=== PATIENT | female | born 1965 | race African-American/Black ===

== ENCOUNTER 2017-07-01 16:53 | Inpatient (IN) | payer MEDICARE, MEDICAID ==
[~2017-07-01 16:53] MED LIST: ISOVUE-370 76%-LOCM 1 ML ONE
--- NOTE | 2017-07-01 17:12 | CT ---
CT OF HEAD NONCONTRAST 07/01/17 COMPARISON: 11/19/16 CLINICAL HISTORY: Stroke alert. FINDINGS: There is no evidence of acute intracranial hemorrhage, mass effect, or midline shift. Subtle low att enuation of the right internal capsule is nonspecific. IMPRESSION: 1. No acute intracranial hemorrhage or mass effect. 2. Subtle low attenuation of the cerebral parenchyma may be on the basis of microvascular ische george disease. recent ischemia not excluded. This may be further assessed with dedicated noncontrast b rain MRI. Telephone call of stroke results placed to the ER physician, Akash Lott, at 1704 hours, 07/01/17. Code CR
[2017-07-01 17:31] LABS: #Eosinphils 0.1 thou/uL (0.0-0.7); #Lymphocytes 2.6 thou/uL (1.20-3.40); #Monocytes 0.5 thou/uL (0.11-0.59); %Basophils 0.6 % (0.0-1.0); %Eosinophils 1.6 % (0.0-10.0); %Lymphocytes 35.8 % (21.0-51.0); %Monocytes 6.6 % (0.0-10.0); Hematocrit 46.3 % (36.0-47.0); Mean Platelet Volume 6.7 fL (7.4-10.4); Red Blood Cell (RBC) Count 4.84 mill/uL (4.20-5.40); White Blood Cell (WBC) Count 7.2 thou/uL (4.8-10.8)
[2017-07-01 17:36] LABS: PTT 26.5 SEC (22.9-36.1); Prothrombin Time 13.9 SEC (12.0-14.7)
[2017-07-01 17:43] LABS: ALT (SGPT) 8 U/L (8-55); AST (SGOT) 14 U/L (5-34); Alkaline Phosphatase 79 U/L (40-150); Anion Gap 15 mmol/L (10-20); BUN (Urea Nitrogen) 9 mg/dL (9.8-20.1); Bilirubin, Total 0.6 mg/dL (0.2-1.2); Calc. Creatinine Clearance 0 mL/min (70-130); Calcium 9.5 mg/dL (7.8-10.44); Carbon Dioxide 22 mmol/L (22-29); Chloride 98 mmol/L (98-107); Estimated GFR-MDRD Greater than 90; Globulin 4.4 g/dL (2.4-3.5); Protein, Total 8.3 g/dL (6.0-8.3)
[2017-07-01 17:48] LABS: Troponin I Less than 0.010 ng/mL (< 0.028)
[2017-07-01 18:04] LABS: Bilirubin Negative (Negative); Blood, Urine Negative (Negative); Glucose, Urine (Dipstick) Negative (Negative); Ketone, Urine Negative (Negative); Nitrite Negative (Negative); Protein, Urine (Dipstick) Negative (Neg-Trace)
--- NOTE | 2017-07-01 18:06 | CT ---
CT ANGIOGRAM OF THE HEAD CT ANGIOGRAM OF THE NECK CT PERFUSION 07/01/17 HISTORY: Left sided weakness and slurred speech. Patient last seen normal 1540 hours. Facial droop. COMPARISON: None. TECHNIQUE: CT angiogram of the head and neck are performed in the axial plane. Three dimensional reformatted im ages are submitted for interpretation. CT perfusion imaging is performed in the axial plain. FINDINGS: POSTCONTRAST HEAD CT: Cortical rene-white matter differentiation is preserved. No evidence of hydrocephalus. Bilateral ocular lens is appropriately located. Both globes are intact. Retrobulbar fat is preserved . Right maxillary sinus disease. Adequate aeration of the remaining sinuses and mastoid air cells. The aerodigestive tract is patent. No mucosal abnormality. Limited evaluation of the oral cavity due to dental amalgam artifact. Midline fatty raphae of the tongue is preserved. Symmetric attenuation of the parotid and submandibular glands. Appropriate attenuation of the sternocleidomastoid muscles. There are nonspecific, nonenlarged soft tissue neck lymph nodes. Hypodensity in the thyroid gland likely representing thyroid masses, possibly cystic lesions. Noneme rgent thyroid ultrasound. There is evidence of cervical fusion at C4, C5 and C6. No obvious perihardware lucency. There are va rying degrees of central canal stenosis and foraminal narrowing on the basis of degenerative change. The upper mediastinum and lung apices are unremarkable for chronic change. CT ANGIOGRAM: There is appropriate enhancement and luminal diameter of the aortic arch. There is a bovine arch with common origin of the right carotid and left carotid arteries. RIGHT CAROTID: The innominate artery, common carotid artery, carotid bifurcation and internal carotid artery have a ppropriate enhancement and luminal diameter. LEFT CAROTID: The left carotid artery origin, common carotid and carotid bifurcation have appropriate enhancement and luminal diameter. There is a small amount of atherosclerotic plaque without significant stenosis in the left carotid bifurcation. VERTEBRAL ARTERIES: Both vertebral artery origins are patent. Vertebral bodies are codominant and patent throughout thei r course in the neck. Bilateral subclavian arteries are patent and unremarkable. There is minimal atherosclerosis of the aortic arch. CT ANGIOGRAM OF THE HEAD: The distal cervical and intracranial internal carotid arteries have appropriate enhancement and venessa nal diameter. ANTERIOR CIRCULATION: There is symmetric enhancement of the A1 and M1 segments. Symmetric enhancement of the A2 segments a nd MCA branches. POSTERIOR CIRCULATION: Left and right PICA artery origins are unremarkable. Both vertebral arteries supply normal caliber b asilar artery. The left and right P1 segments have appropriate enhancement and luminal diameter. CT PERFUSION: There is no evidence of increased mean transit time. No evidence of decreased blood flow or blood vo lume. No evidence of penumbra or completed infarct. IMPRESSION: 1. No significant stenosis at the level of the [place]. 2. No evidence of significant stenosis of the carotid arteries based upon NASCET criteria. 3. Unremarkable CT perfusion study. 4. Results of the study discussed with Dr. Nix 07/01/17 at 5:29 p.m. Code CR POS: [facility]
[2017-07-01 18:15] LABS: Amphetamine Not Detected (NotDetected); Methadone Not Detected (NotDetected); Methamphetamine Not Detected (NotDetected)
--- NOTE | 2017-07-01 18:15 | RAD ---
EXAM: ONE VIEW CHEST 07/01/17 HISTORY: Left sided weakness and facial droop. COMPARISON: 02/24/17 FINDINGS: Normal cardiac silhouette. The pulmonary vessels and hilum are normal. Costophrenic angles are clear . Hyperinflation with chronic changes. No consolidation or mass. No pneumothorax or osseous abnormal ities. Calcified granuloma in the right upper lobe. IMPRESSION: No acute cardiopulmonary process. POS: [facility]
[2017-07-01] MEDS ORDERED: hydrALAZINE 20 MG/ML VIAL SLOW IVP PRN (19:03)
[2017-07-01] MEDS ORDERED: Bisacodyl 5 MG TAB PO PRN (19:03)
[2017-07-01] MEDS ORDERED: Acetaminophen 325 MG TAB PO PRN (19:03)
[2017-07-01] MEDS ORDERED: Ondansetron HCl/PF 4 MG/2 ML Vial IVP PRN (19:03)
[2017-07-01] MEDS ORDERED: Acetaminophen 650 MG Suppository PR PRN (19:03)
[2017-07-01] MEDS ORDERED: Dextrose 50% Abboject 50 ML SYRINGE SLOW IVP PRN (19:07)
[2017-07-01] MEDS ORDERED: Dextrose 5% in Water 1,000 ML IV PRN (19:07)
--- NOTE | 2017-07-01 19:53 | HP ---
PRIMARY CARE PHYSICIAN: Drew Campbell M.D. CHIEF COMPLAINT: Weakness. HISTORY OF PRESENT ILLNESS: Ms. Moreira is a pleasant 52-year-old lady who was seen at [facility] on 07/01/2017 following transfer to the emergency room by [facility]. The patient has slurred speech and is able to provide some history. Supplemental history was obtain ed from review of medical records as well as from discussion with the emergency room physician. Ms. Moreira reportedly woke up, feeling numbness over her left arm. She attributed to not sleeping p roperly. Since then, when she tried to go to the bathroom, she has felt weak in her left lower extr emity. She also reports having slurred speech and facial droop. Eventually, she called EMS and was air lifted to this emergency room. The patient reports that her symptoms are improving. REVIEW OF SYSTEMS: The following complete review of systems was negative, unless otherwise mentione d in the HPI or below: Constitutional: Weight loss or gain, sense of well-being, ability to conduct usual activities, exer cise tolerance. Skin/Breast: Rash, itching, changes in hair growth or loss, nail changes, breast lumps, tenderness, swelling, nipple discharge. Eyes: Vision, double vision, tearing, blind spots, pain. ENT/Mouth: Headaches (location, time of onset, duration, precipitating factors), vertigo, lighthead edness, injury. Vision, double vision, tearing, blind spots, pain, nose bleeding, colds, obstruction , discharge, dental difficulties, gingival bleeding, dentures, neck stiffness, pain, tenderness, mas ses in thyroid or other areas. Cardiovascular: Precordial pain, substernal distress, palpitations, syncope, dyspnea on exertion, o rthopnea, nocturnal paroxysmal dyspnea, edema, cyanosis, hypertension, heart murmurs, varicosities, phlebitis, claudication. Respiratory: Pain, shortness of breath, wheezing, stridor, cough, hemoptysis, fever or night sweats . Gastrointestinal: Poor appetite, dysphagia, indigestion, abdominal pain, heartburn, eructation, [place], vomiting, hematemesis, jaundice, constipation, or diarrhea, abnormal stools (roxane-colored, carolyn y, bloody, greasy, foul smelling), flatulence, hemorrhoids, recent changes in bowel habits. Genitourinary: Urgency, frequency, dysuria, nocturia, hematuria, polyuria, oliguria, unusual (or ch beatriz in) color of urine, stones, hesitancy, change in size of stream, dribbling, acute retention or incontinence, libido, potency. Musculoskeletal: Pain, swelling, redness or heat of muscles or joints, limitation, of motion, muscu lar weakness, atrophy, cramps. Neurologic/Psychiatric: Convulsions, paralyses, tremor, incoordination, paresthesias, difficulties with memory of speech, sensory or motor disturbances, or muscular coordination (ataxia, tremor), emo tional problems, anxiety, depression, previous psychiatric care, unusual perceptions, hallucinations . Allergy/Immunologic: Skin rash, anemia, bleeding tendency, polydipsia, polyuria, intolerance to hea t or cold. PAST MEDICAL HISTORY: Significant for diabetes mellitus type 2, gastroesophageal reflux disease, hy pertension, asthma, chronic back pain, arthritis, and lupus. PAST SURGICAL HISTORY: Significant for left knee surgery, bilateral hand surgery, neck surgery, hys terectomy, and x2. PSYCHIATRIC HISTORY: Significant for anxiety. SOCIAL HISTORY: The patient reports smoking 5 to 10 cigarettes a day. She reports occasional alcoh ol use. She reports occasional marijuana use. She reports occasional cocaine use. Her last cocain e use was last night. FAMILY HISTORY: Significant for stroke in her brother. ALLERGIES: ASPIRIN, LACTOSE, MEDROL, MORPHINE, SULFA, and TRAMADOL. CURRENT MEDICATIONS: Include escitalopram 10 mg daily, metformin 500 mg 2 times a day, glipizide 10 mg daily. PHYSICAL EXAMINATION: GENERAL: On examination, Ms. Moreira is awake and alert, not in acute distress. VITAL SIGNS: Blood pressure is 178/94, pulse is 77. She is breathing at rate of 20 and saturating 100% on room air. She is afebrile. EYES: No scleral icterus, no conjunctival pallor. ENT: Dry mucosal membranes, no oropharyngeal erythema or exudates. NECK: Supple, nontender, normal range of movement, trachea is midline. RESPIRATORY: Accessory muscles of breathing are not active. Chest wall movements are symmetric lindsey aterally. LUNGS: Clear to auscultation without wheeze, rhonchi or crepitations. CARDIOVASCULAR: S1 and S2 are heard, regular. LUNGS: Peripheral pulses palpable. No carotid bruit, no pericardial rub. ABDOMEN: Soft, nontender, bowel sounds heard, no hepatomegaly, no splenomegaly. SKIN: The patient has alopecia and plaque over her scalp. NEUROLOGIC: The patient has slurred speech. Otherwise, cranial nerves II-XII are intact. Power is 4+/5 in left upper and lower extremities, 5/5 in right upper and lower extremities. Deep tendon re flexes are 2+. Plantar reflexes downgoing bilaterally. MUSCULOSKELETAL: Power in the four extremities as described above. LYMPHATIC: No cervical lymphadenopathy. PSYCHIATRIC: Normal mood, normal affect, patient is oriented to person, place, and time. LABORATORY DATA: Ms. Moreira' labs and investigations were reviewed. I reviewed her electrocardiogr am, which shows normal sinus rhythm, no ST changes to suggest an acute coronary syndrome. I also re viewed chest x-ray, which does not show any pulmonary infiltrates. She had noncontrast brain CT, wh ich did not reveal any acute intracranial hemorrhage or mass effect. She had a subtle low attenuati on of the cerebellar parenchyma, which could be on the basis of microvascular ischemic disease. The radiologist could not exclude recent ischemia. She also had CT angiogram of the head and neck, whi ch did not reveal any significant stenosis at the level of [place] or significant stenosis of the carotid arteries. LABORATORY INVESTIGATIONS: Show unremarkable CBC, INR 1.1, hyponatremia with sodium 131, normal pot assium, normal creatinine, unremarkable liver profile, normal TSH, normal troponin I, urinalysis khushboo t is negative for nitrite and leukocyte esterase and urine toxicology screen positive for cocaine an d cannabinoids. ASSESSMENT AND PLAN: Ms. Moreira is a pleasant 52-year-old lady who was seen at [facility] on 07/01/2017. Her problem list includes: 1. Ischemic cerebrovascular accident: Her presentation is consistent with an ischemic cerebrovascu lar accident. She will be admitted to the stroke floor for MRI brain and 2D echocardiogram and tele metry monitoring. We will also consult Neurology Service. She has already received aspirin without any side effects, we will continue aspirin. 2. Diabetes mellitus: Continue home medications, start insulin sliding scale and monitor Accu-Chek s. 3. Hypertension: Monitor vital signs, titrate antihypertensives as needed. 4. Gastroesophageal reflux disease: Appears stable. 5. Lupus: Appears stable. 6. Tobacco use: The patient has been counseled regarding tobacco cessation. We will start patient on nicotine replacement therapy. 7. Recreational drug abuse: The patient has been counseled about cessation of recreational drug us e. Many thanks for allowing me to participate in your patient's care. Please feel free to contact me w ith any questions or concerns. LEVEL OF RISK: High. LEVEL OF COMPLEXITY: High.
[2017-07-01 21:15] LABS: Troponin I Less than 0.010 ng/mL (< 0.028)
[2017-07-01] MEDS: Atorvastatin Calcium 10 MG TAB PO SCH (23:11)
[2017-07-01] MEDS: Nicotine 14 MG PATCH TD SCH (23:11)
[2017-07-01 23:22] VITALS: BMI 25.6
[2017-07-02 00:09] LABS: Troponin I Less than 0.010 ng/mL (< 0.028)
[2017-07-02 04:25] LABS: #Basophils 0.1 thou/uL (0.0-0.2); #Eosinphils 0.1 thou/uL (0.0-0.7); #Lymphocytes 2.3 thou/uL (1.20-3.40); #Monocytes 0.4 thou/uL (0.11-0.59); #Neutrophils 3.8 thou/uL (1.40-6.50); %Basophils 0.9 % (0.0-1.0); %Monocytes 6.1 % (0.0-10.0); Hematocrit 45.8 % (36.0-47.0); Mean Platelet Volume 6.7 fL (7.4-10.4); Red Blood Cell (RBC) Count 4.83 mill/uL (4.20-5.40); White Blood Cell (WBC) Count 6.7 thou/uL (4.8-10.8)
[2017-07-02 04:54] LABS: Anion Gap 15 mmol/L (10-20); BUN (Urea Nitrogen) 11 mg/dL (9.8-20.1); Calc. Creatinine Clearance 90 mL/min (70-130); Calcium 9.7 mg/dL (7.8-10.44); Carbon Dioxide 25 mmol/L (22-29); Chloride 101 mmol/L (98-107); Cholesterol 132 mg/dl (< 200 Desired); Estimated GFR-MDRD Greater than 90; LDL Cholesterol, Calculated 53 mg/dL
[2017-07-02] MEDS: HumaLOG 300 UNITS/3 ML VIAL SC PRN ×2 (06:45→11:10)
[2017-07-02] MEDS: glipiZIDE 5 MG TAB PO SCH (06:45)
[2017-07-02] MEDS: Escitalopram Oxalate 10 mg Tablet PO SCH (09:00)
[2017-07-02] MEDS: Enoxaparin Sodium 40 MG/0.4 ML SYRINGE SC SCH (09:00)
[2017-07-02] MEDS: Aspirin 325 mg Enteric Coated Tablet PO SCH (09:00)
--- NOTE | 2017-07-02 10:47 | PDOC.PN ---
- Subjective Encounter Start Date: 07/02/17 Encounter Start Time: 07:00 Pt seen for followup re: weakness. Denies chest pain, shortness of breath, fevers or chills. Speech less slurred today. - Objective MAR Reviewed: Yes Vital Signs & Weight: Vital Signs (12 hours) Temp Pulse Resp BP Pulse Ox 07/02/17 07:40 97.7 F 74 18 07/02/17 07:08 97.7 F 74 18 134/75 98 07/02/17 04:10 97.5 F L 70 16 121/72 94 L 07/02/17 00:20 98.4 F 78 18 151/86 H 100 I&O: 07/01/17 07/02/17 07/03/17 06:59 06:59 06:59 Intake Total 240 Balance 240 Result Diagrams: 07/02/17 04:13 07/02/17 04:13 Additional Labs: Accuchecks 07/02/17 07/02/17 05:25 00:10 POC Glucose 174 H 233 H EKG Reviewed by me: Yes (Tele: NSR) Phys Exam - Physical Examination Constitutional: NAD HEENT: PERRLA, moist MMs, sclera anicteric, oral pharynx no lesions Neck: no nodes, no JVD, supple, full ROM Respiratory: no wheezing, no rales, no rhonchi, clear to auscultation bilateral Cardiovascular: RRR, no rub Gastrointestinal: soft, non-tender, no distention, positive bowel sounds Musculoskeletal: pulses present Neurological: moves all 4 limbs Power 4+/5 LLE and LUE, 5/5 RLE and RUE Lymphatic: no nodes Psychiatric: normal affect, A&O x 3 Skin: no rash, normal turgor, cap refill <2 seconds Dx/Plan (1) Weakness Code(s): R53.1 - WEAKNESS Status: Acute (2) TIA (transient ischemic attack) Status: Suspected (3) DM2 (diabetes mellitus, type 2) Status: Chronic (4) GERD (gastroesophageal reflux disease) Code(s): K21.9 - GASTRO-ESOPHAGEAL REFLUX DISEASE WITHOUT ESOPHAGITIS Status: Chronic (5) HTN (hypertension) Code(s): I10 - ESSENTIAL (PRIMARY) HYPERTENSION Status: Chronic (6) Asthma Code(s): J45.909 - UNSPECIFIED ASTHMA, UNCOMPLICATED Status: Chronic (7) Chronic back pain Code(s): M54.9 - DORSALGIA, UNSPECIFIED; G89.29 - OTHER CHRONIC PAIN Status: Chronic (8) Lupus Code(s): L93.0 - DISCOID LUPUS ERYTHEMATOSUS Status: Chronic - Plan PT/OT, out of bed/ambulate, DVT proph w/lovenox * . Continue aspirin, statin. Await MRI brain, 2D echo, neuro consult. Monitor vital signs, titrate antihypertensives as needed. Continue accuchecks, insulin sliding scale. Review of Systems - Review of Systems Constitutional: negative: Fever, Chills, Sweats, Weakness, Malaise Respiratory: negative: Cough, Dry, Shortness of Breath, Hemoptysis, SOB with Excertion, Pleuritic Pain, Sputum, Wheezing Cardiovascular: negative: Chest Pain, Palpitations, Orthopnea, Paroxysmal Noc. Dyspnea, Edema, Light Headedness Gastrointestinal: negative: Nausea, Vomiting, Abdominal Pain, Diarrhea, Constipation, Melena, Hematochezia Genitourinary: negative: Dysuria, Frequency, Incontinence, Hematuria, Retention Neurological: Weakness, Change in Speech. negative: Numbness, Incoordination, Confusion, Seizures - Medications/Allergies Allergies/Adverse Reactions: Allergies Allergy/AdvReac Type Severity Reaction Status Date / Time aspirin Allergy Verified 07/01/17 19:02 methylprednisolone Allergy Verified 07/01/17 19:02 [From Medrol] morphine Allergy Verified 07/01/17 19:02 Sulfa (Sulfonamide Allergy Verified 07/01/17 19:02 Antibiotics) tramadol Allergy Verified 07/01/17 19:02 Medications: Current Medications Acetaminophen (Tylenol) 650 mg PO Q4H PRN PRN Reason: Headache/Fever or Pain Acetaminophen (Tylenol) 650 mg [place] Q4H PRN PRN Reason: Headache/Fever or Pain Aspirin (Ecotrin) 325 mg PO DAILY [facility] Last Admin: 07/02/17 09:00 Dose: 325 mg Atorvastatin Calcium (Lipitor) 10 mg PO HS [facility] Last Admin: 07/01/17 23:11 Dose: 10 mg Bisacodyl (Dulcolax) 10 mg PO DAILYPRN PRN PRN Reason: Constipation Dextrose/Water (Dextrose 50%) 25 gm SLOW IVP PRN PRN PRN Reason: Hypoglycemia Enoxaparin Sodium (Lovenox) 40 mg SC 0900 [facility] Last Admin: 07/02/17 09:00 Dose: 40 mg Escitalopram Oxalate (Lexapro) 10 mg PO DAILY [facility] Last Admin: 07/02/17 09:00 Dose: 10 mg Glipizide (Glucotrol) 5 mg PO DAILY[facility] Last Admin: 07/02/17 06:45 Dose: 5 mg Glucagon (Glucagon) 1 mg IM PRN PRN PRN Reason: Hypoglycemia Hydralazine HCl (Apresoline) 10 mg SLOW IVP Q4H PRN PRN Reason: BP > 220/110 Dextrose/Water (D5w) 1,000 mls @ 0 mls/hr IV .Q0M PRN; As Directed PRN Reason: Hypoglycemia Insulin Human Lispro (Humalog) 0 units SC .MILD SLIDING SCALE PRN PRN Reason: Mild Correctional Scale Last Admin: 07/02/17 06:45 Dose: 2 unit Nicotine (Nicoderm Patch) 14 mg TD Q24HR [facility] Last Admin: 07/01/17 23:11 Dose: 14 mg Ondansetron HCl (Zofran) 4 mg IVP Q6H PRN PRN Reason: Nausea/Vomiting
--- NOTE | 2017-07-02 11:52 | MRI ---
MRI OF THE BRAIN WITHOUT CONTRAST: COMPARISON: CTA head 07/01/17. HISTORY: Stroke with facial drooping and left-sided weakness. TECHNIQUE: Multiplanar, multisequence MRI images were obtained of the brain without contrast. FINDINGS: There is a 1.3 cm area of restricted diffusion and high FLAIR signal in the right basal ganglia whic h represents an acute infarction. No other signal abnormality is seen within the brain. There is no evidence of hydrocephalus, intracranial hemorrhage, or extraaxial fluid collection. The expected flow voids are present. The corpus callosum, pituitary, and craniocervical junction are unremarkable. The calvarium and ove rlying soft tissues are unremarkable. Mucosal thickening is seen in the right maxillary sinus. IMPRESSION: Acute right basal ganglia infarction as above. POS: [facility]
--- NOTE | 2017-07-02 18:30 | CON ---
DATE OF CONSULTATION: 07/02/2017 CONSULTING PHYSICIAN: Hospitalist. IMPRESSION: 1. Right basal ganglia stroke. 2. Cocaine abuse. 3. Hypertension. 4. Diabetes. PLAN: 1. Aspirin 325 mg per day. 2. Lipitor 20 mg per day. 3. Patient was advised to discontinue cocaine abuse. HISTORY OF PRESENT ILLNESS: Ms. Moreira is a 52-year-old black female with a history of hypertension and diabetes, who went to a green party and smoked cocaine and a joint. She started feeling strange and went home. When she awoke, she had left-sided weakness. She came to the hospital for evaluation. Her MRI of the brain revealed right basal ganglia infarct. Her CTA did not reveal any carotid or in tracranial stenosis. She has been minimally hypertensive since admission. Her blood sugars have be en running in the 200-300 range. She does not report any significant change since admission. There is no past history of TIA or stroke-like symptoms. PAST MEDICAL HISTORY: Hypertension and diabetes. ALLERGIES: ASPIRIN, METHYLPREDNISOLONE, MORPHINE as well as OTHERS LISTED. SOCIAL HISTORY: Positive for tobacco, marijuana and cocaine. FAMILY HISTORY: Noncontributory. REVIEW OF SYSTEMS: Otherwise, negative. PHYSICAL EXAMINATION: VITAL SIGNS: Blood pressure 157/85, pulse 77, respirations 18, temperature 98. HEENT: Pupils equal and reactive. Conjunctivae clear. Oropharynx clear. NECK: Supple. No lymphadenopathy noted. EXTREMITIES: No cyanosis, clubbing or edema. NEUROLOGIC: She is alert and cooperative. Her speech was fluent and clear. There was some minimal facial asymmetry on the left with a slight droop. Sensation was intact. Motor exam showed 4/5 str ength on the left. Zygtaa-rr-hmto movements were clumsy on the left. Sensation was intact in the e xtremities as well. She reportedly can walk independently with a limp on the left. No abnormal mov ements were seen. LABORATORY STUDIES: Reviewed. Imaging studies were reviewed as well. SUMMARY: This is a 52-year-old woman with history of hypertension and diabetes, who presented with a small vessel stroke after cocaine use. Would start her on antiplatelet therapy, I guess with Plav ix, now that as she is ASPIRIN allergic and a low dose of statin given that her cholesterol measures are actually relatively good.
[2017-07-02] MEDS: Atorvastatin Calcium 10 MG TAB PO SCH (20:08)
[2017-07-02] MEDS: Nicotine 14 MG PATCH TD SCH (20:08)
[2017-07-03] MEDS: glipiZIDE 5 MG TAB PO SCH ×3 (06:34→17:33)
[2017-07-03] MEDS: HumaLOG 300 UNITS/3 ML VIAL SC PRN ×3 (06:34→17:33)
[2017-07-03] MEDS: Escitalopram Oxalate 10 mg Tablet PO SCH (09:44)
[2017-07-03] MEDS: Aspirin 325 mg Enteric Coated Tablet PO SCH (09:44)
[2017-07-03] MEDS: Enoxaparin Sodium 40 MG/0.4 ML SYRINGE SC SCH (09:44)
--- NOTE | 2017-07-03 10:21 | PDOC.PN ---
- Subjective Encounter Start Date: 07/03/17 Encounter Start Time: 08:00 Subjective: feels better, is able to move left extremities - Objective MAR Reviewed: Yes Vital Signs & Weight: Vital Signs (12 hours) Temp Pulse Resp BP Pulse Ox 07/03/17 07:20 97.9 F 74 16 07/03/17 07:15 98.7 F 71 16 175/96 H 96 07/03/17 04:06 97.9 F 74 16 142/89 H 97 07/02/17 23:39 97.9 F 69 18 155/90 H 99 I&O: 07/02/17 07/03/17 07/04/17 06:59 06:59 06:59 Intake Total 700 Balance 700 Result Diagrams: 07/02/17 04:13 07/02/17 04:13 Additional Labs: Accuchecks 07/03/17 07/02/17 07/02/17 06:34 21:19 16:44 POC Glucose 159 H 156 H 104 Phys Exam - Physical Examination HEENT: PERRLA, moist MMs Neck: no JVD, supple Respiratory: no wheezing, no rales Cardiovascular: RRR, no significant murmur Gastrointestinal: soft, non-tender, positive bowel sounds Musculoskeletal: no edema, pulses present left side strength is 4/5, right is normal Psychiatric: A&O x 3 Dx/Plan (1) Acute CVA (cerebrovascular accident) Code(s): I63.9 - CEREBRAL INFARCTION, UNSPECIFIED Status: Acute Comment: right basal ganglia infarct with left hemiparesis (2) Cocaine abuse Code(s): F14.10 - COCAINE ABUSE, UNCOMPLICATED Status: Acute (3) Asthma Code(s): J45.909 - UNSPECIFIED ASTHMA, UNCOMPLICATED Status: Chronic Qualifiers: Asthma severity: mild Asthma persistence: intermittent Asthma complication type: uncomplicated Qualified Code(s): J45.20 - Mild intermittent asthma, uncomplicated (4) DM2 (diabetes mellitus, type 2) Status: Chronic Qualifiers: Diabetes mellitus complication status: with hyperglycemia Diabetes mellitus shelter insulin use: with shelter use Qualified Code(s): E11.65 - Type 2 diabetes mellitus with hyperglycemia; Z79.4 - FPC (current) use of insulin; Z79.4 - FPC (current) use of insulin; Z79.4 - FPC ( current) use of insulin; Z79.4 - FPC (current) use of insulin (5) GERD (gastroesophageal reflux disease) Code(s): K21.9 - GASTRO-ESOPHAGEAL REFLUX DISEASE WITHOUT ESOPHAGITIS Status: Chronic Qualifiers: Esophagitis presence: esophagitis presence not specified Qualified Code(s) : K21.9 - Gastro-esophageal reflux disease without esophagitis (6) HTN (hypertension) Code(s): I10 - ESSENTIAL (PRIMARY) HYPERTENSION Status: Chronic Qualifiers: Hypertension type: essential hypertension Qualified Code(s): I10 - Essential (primary) hypertension (7) Lupus Code(s): L93.0 - DISCOID LUPUS ERYTHEMATOSUS Status: Chronic Qualifiers: Lupus erythematosus form: unspecified Qualified Code(s): L93.0 - Discoid lupus erythematosus - Plan is on asp and lipitor -: PT/OT/speech eval -: rehab eval pending -: has amb with PT -: increase glipizide to bid and levemir small dose bid * . Review of Systems - Medications/Allergies Allergies/Adverse Reactions: Allergies Allergy/AdvReac Type Severity Reaction Status Date / Time aspirin Allergy Verified 07/01/17 19:02 methylprednisolone Allergy Verified 07/01/17 19:02 [From Medrol] morphine Allergy Verified 07/01/17 19:02 Sulfa (Sulfonamide Allergy Verified 07/01/17 19:02 Antibiotics) tramadol Allergy Verified 07/01/17 19:02 Medications: Current Medications Acetaminophen (Tylenol) 650 mg PO Q4H PRN PRN Reason: Headache/Fever or Pain Acetaminophen (Tylenol) [address] Q4H PRN PRN Reason: Headache/Fever or Pain Aspirin (Ecotrin) 325 mg PO DAILY [facility] Last Admin: 07/03/17 09:44 Dose: 325 mg Atorvastatin Calcium (Lipitor) 10 mg PO HS [facility] Last Admin: 07/02/17 20:08 Dose: 10 mg Bisacodyl (Dulcolax) 10 mg PO DAILYPRN PRN PRN Reason: Constipation Dextrose/Water (Dextrose 50%) 25 gm SLOW IVP PRN PRN PRN Reason: Hypoglycemia Enoxaparin Sodium (Lovenox) 40 mg SC 0900 [facility] Last Admin: 07/03/17 09:44 Dose: 40 mg Escitalopram Oxalate (Lexapro) 10 mg PO DAILY [facility] Last Admin: 07/03/17 09:44 Dose: 10 mg Glipizide (Glucotrol) 5 mg PO BID-[facility] Last Admin: 07/03/17 08:32 Dose: Not Given Glucagon (Glucagon) 1 mg IM PRN PRN PRN Reason: Hypoglycemia Hydralazine HCl (Apresoline) 10 mg SLOW IVP Q4H PRN PRN Reason: BP > 220/110 Dextrose/Water (D5w) 1,000 mls @ 0 mls/hr IV .Q0M PRN; As Directed PRN Reason: Hypoglycemia Insulin Detemir 5 units/ (Miscellaneous Medication) 0.05 mls @ 0 mls/hr SC BID [facility] Insulin Human Lispro (Humalog) 0 units SC .MILD SLIDING SCALE PRN PRN Reason: Mild Correctional Scale Last Admin: 07/03/17 06:34 Dose: 2 unit Nicotine (Nicoderm Patch) 14 mg TD Q24HR [facility] Last Admin: 07/02/17 20:08 Dose: 14 mg Ondansetron HCl (Zofran) 4 mg IVP Q6H PRN PRN Reason: Nausea/Vomiting
[2017-07-03] MEDS: Insulin Detemir 100 UNITS/ML 5 UNITS in Pre-Filled Syringe 1 EACH SC SCH ×2 (12:04→20:45)
[2017-07-03] MEDS: Nicotine 14 MG PATCH TD SCH (17:33)
[2017-07-03] MEDS: Atorvastatin Calcium 10 MG TAB PO SCH (20:45)
[2017-07-04] MEDS: glipiZIDE 5 MG TAB PO SCH (06:30)
[2017-07-04] MEDS: Aspirin 325 mg Enteric Coated Tablet PO SCH (09:27)
[2017-07-04] MEDS: Insulin Detemir 100 UNITS/ML 5 UNITS in Pre-Filled Syringe 1 EACH SC SCH (09:27)
[2017-07-04] MEDS: Escitalopram Oxalate 10 mg Tablet PO SCH (09:27)
[2017-07-04] MEDS: Enoxaparin Sodium 40 MG/0.4 ML SYRINGE SC SCH (09:28)
--- NOTE | 2017-07-04 10:26 | CT ---
CT ANGIOGRAM OF THE HEAD CT ANGIOGRAM OF THE NECK CT PERFUSION 07/01/17 HISTORY: Left sided weakness and slurred speech. Patient last seen normal 1540 hours. Facial droop. COMPARISON: None. TECHNIQUE: CT angiogram of the head and neck are performed in the axial plane. Three dimensional reformatted im ages are submitted for interpretation. CT perfusion imaging is performed in the axial plain. FINDINGS: POSTCONTRAST HEAD CT: Cortical rene-white matter differentiation is preserved. No evidence of hydrocephalus. Bilateral ocular lens is appropriately located. Both globes are intact. Retrobulbar fat is preserved . Right maxillary sinus disease. Adequate aeration of the remaining sinuses and mastoid air cells. The aerodigestive tract is patent. No mucosal abnormality. Limited evaluation of the oral cavity due to dental amalgam artifact. Midline fatty raphae of the tongue is preserved. Symmetric attenuation of the parotid and submandibular glands. Appropriate attenuation of the sternocleidomastoid muscles. There are nonspecific, nonenlarged soft tissue neck lymph nodes. Hypodensity in the thyroid gland likely representing thyroid masses, possibly cystic lesions. Noneme rgent thyroid ultrasound. There is evidence of cervical fusion at C4, C5 and C6. No obvious perihardware lucency. There are va rying degrees of central canal stenosis and foraminal narrowing on the basis of degenerative change. The upper mediastinum and lung apices are unremarkable for chronic change. CT ANGIOGRAM: There is appropriate enhancement and luminal diameter of the aortic arch. There is a bovine arch with common origin of the right carotid and left carotid arteries. RIGHT CAROTID: The innominate artery, common carotid artery, carotid bifurcation and internal carotid artery have a ppropriate enhancement and luminal diameter. LEFT CAROTID: The left carotid artery origin, common carotid and carotid bifurcation have appropriate enhancement and luminal diameter. There is a small amount of atherosclerotic plaque without significant stenosis in the left carotid bifurcation. VERTEBRAL ARTERIES: Both vertebral artery origins are patent. Vertebral bodies are codominant and patent throughout thei r course in the neck. Bilateral subclavian arteries are patent and unremarkable. There is minimal atherosclerosis of the aortic arch. CT ANGIOGRAM OF THE HEAD: The distal cervical and intracranial internal carotid arteries have appropriate enhancement and venessa nal diameter. ANTERIOR CIRCULATION: There is symmetric enhancement of the A1 and M1 segments. Symmetric enhancement of the A2 segments a nd MCA branches. POSTERIOR CIRCULATION: Left and right PICA artery origins are unremarkable. Both vertebral arteries supply normal caliber b asilar artery. The left and right P1 segments have appropriate enhancement and luminal diameter. CT PERFUSION: There is no evidence of increased mean transit time. No evidence of decreased blood flow or blood vo lume. No evidence of penumbra or completed infarct. IMPRESSION: 1.No significant stenosis at the level of the [place] of [place]. 2. No evidence of significant stenosis of the carotid arteries based upon NASCET criteria. 3.Unremarkable CT perfusion study. 4. Results of the study discussed with Dr. Nix 07/01/17 at 5:29 p.m. Code CR
--- NOTE | 2017-07-04 10:40 | PDOC.PN ---
- Subjective Encounter Start Date: 07/04/17 Encounter Start Time: 10:38 Patient seen and examined. No new complaints. No overnight events - Objective MAR Reviewed: Yes Vital Signs & Weight: Vital Signs (12 hours) Temp Pulse Resp BP Pulse Ox 07/04/17 08:00 98.4 F 71 20 161/86 H 98 07/04/17 07:40 98.4 F 70 18 07/04/17 05:04 97 07/04/17 03:14 98.4 F 70 18 161/83 H 97 07/03/17 23:14 97.9 F 68 16 161/79 H 98 Weight Weight 152 lb 4.8 oz I&O: 07/03/17 07/04/17 07/05/17 06:59 06:59 06:59 Intake Total 700 1180 Balance 700 1180 Result Diagrams: 07/02/17 04:13 07/02/17 04:13 Additional Labs: Accuchecks 07/03/17 07/03/17 07/03/17 20:18 16:57 10:36 POC Glucose 131 H 273 H 162 H EKG Reviewed by me: Yes (Tele SR) Phys Exam - Physical Examination Constitutional: NAD Respiratory: no wheezing, no rhonchi Cardiovascular: RRR, no rub Gastrointestinal: soft, non-tender, positive bowel sounds Musculoskeletal: no edema Neurological: non-focal, moves all 4 limbs Dx/Plan (1) Acute CVA (cerebrovascular accident) Code(s): I63.9 - CEREBRAL INFARCTION, UNSPECIFIED Status: Acute Comment: right basal ganglia infarct with left hemiparesis (2) Polysubstance abuse Code(s): F19.10 - OTHER PSYCHOACTIVE SUBSTANCE ABUSE, UNCOMPLICATED Status: Acute (3) DM2 (diabetes mellitus, type 2) Status: Chronic Qualifiers: Diabetes mellitus complication status: with hyperglycemia (4) GERD (gastroesophageal reflux disease) Code(s): K21.9 - GASTRO-ESOPHAGEAL REFLUX DISEASE WITHOUT ESOPHAGITIS Status: Chronic (5) HTN (hypertension) Code(s): I10 - ESSENTIAL (PRIMARY) HYPERTENSION Status: Chronic - Plan cont current plan of care, DVT proph w/lovenox, DVT proph w/SCDs * Await Rehab eval * Echo report pending * Cont to monitor * Cont ASA Review of Systems - Review of Systems Respiratory: negative: Cough, Dry, Shortness of Breath, Hemoptysis, SOB with Excertion, Pleuritic Pain, Sputum, Wheezing Cardiovascular: negative: Chest Pain, Palpitations, Orthopnea, Paroxysmal Noc. Dyspnea, Edema, Light Headedness, Other Gastrointestinal: negative: Nausea, Vomiting, Abdominal Pain, Diarrhea, Constipation, Melena, Hematochezia, Other - Medications/Allergies Allergies/Adverse Reactions: Allergies Allergy/AdvReac Type Severity Reaction Status Date / Time aspirin Allergy Verified 07/01/17 19:02 methylprednisolone Allergy Verified 07/01/17 19:02 [From Medrol] morphine Allergy Verified 07/01/17 19:02 Sulfa (Sulfonamide Allergy Verified 07/01/17 19:02 Antibiotics) tramadol Allergy Verified 07/01/17 19:02 Medications: Current Medications Acetaminophen (Tylenol) 650 mg PO Q4H PRN PRN Reason: Headache/Fever or Pain Acetaminophen (Tylenol) 650 mg OR Q4H PRN PRN Reason: Headache/Fever or Pain Aspirin (Ecotrin) 325 mg PO DAILY [facility] Last Admin: 07/04/17 09:27 Dose: 325 mg Atorvastatin Calcium (Lipitor) 10 mg PO HS [facility] Last Admin: 07/03/17 20:45 Dose: 10 mg Bisacodyl (Dulcolax) 10 mg PO DAILYPRN PRN PRN Reason: Constipation Dextrose/Water (Dextrose 50%) 25 gm SLOW IVP PRN PRN PRN Reason: Hypoglycemia Enoxaparin Sodium (Lovenox) 40 mg SC 0900 [facility] Last Admin: 07/04/17 09:28 Dose: 40 mg Escitalopram Oxalate (Lexapro) 10 mg PO DAILY [facility] Last Admin: 07/04/17 09:27 Dose: 10 mg Glipizide (Glucotrol) 5 mg PO BID-[facility] Last Admin: 07/04/17 06:30 Dose: 5 mg Glucagon (Glucagon) 1 mg IM PRN PRN PRN Reason: Hypoglycemia Hydralazine HCl (Apresoline) 10 mg SLOW IVP Q4H PRN PRN Reason: BP > 220/110 Dextrose/Water (D5w) 1,000 mls @ 0 mls/hr IV .Q0M PRN; As Directed PRN Reason: Hypoglycemia Insulin Detemir 5 units/ (Miscellaneous Medication) 0.05 mls @ 0 mls/hr SC BID [facility] Last Admin: 07/04/17 09:27 Dose: 0.05 mls Insulin Human Lispro (Humalog) 0 units SC .MILD SLIDING SCALE PRN PRN Reason: Mild Correctional Scale Last Admin: 07/03/17 17:33 Dose: 6 unit Nicotine (Nicoderm Patch) 14 mg TD Q24HR [facility] Last Admin: 07/03/17 17:33 Dose: 14 mg Ondansetron HCl (Zofran) 4 mg IVP Q6H PRN PRN Reason: Nausea/Vomiting
[2017-07-04 12:03] VITALS: TEMP 98.5
[2017-07-04 15:57] VITALS: BP 170/88
--- NOTE | 2017-07-04 18:28 | DIS ---
DATE OF DISCHARGE: 07/04/2017 DISCHARGE DISPOSITION: To inpatient rehab. The patient was seen and examined on the day of discharge. Please refer to my progress note for det ails. DISCHARGE MEDICATIONS: Tylenol as needed, amlodipine 5 mg b.i.d., aspirin 325 mg daily, Lipitor 10 mg at bedtime, Nexium 20 mg daily, Levemir 12 units b.i.d., losartan/HCTZ 100/25 daily, clonidine 0. 1 mg as needed, glipizide 10 mg daily, metformin 500 mg b.i.d. TESTS PENDING AT DISCHARGE: Echocardiogram official report. Primary care physician is advised to follow. FOLLOWUP: 1. Follow up with primary care physician, Dr. Campbell in 1-2 weeks. 2. Follow up with Neurology, Dr. Wood in 2 weeks. ALLERGIES: The patient is allergic to MORPHINE, SULFA, TRAMADOL, and METHYLPREDNISOLONE. DISCHARGE DISPOSITION: Inpatient rehabilitation. BRIEF HOSPITAL COURSE: The patient is a 52-year-old female with diabetes mellitus type 2, hypertens ion with ongoing tobacco abuse who presented to the hospital with stroke-like symptoms. Please refe r to the history and physical dated 07/01/2017 for further details. The patient was admitted to the hospital with a diagnosis of acute CVA. She was brought in by [facility]. Her workup was consistent with acute right basal ganglia infarction. The patient was e valuated by Neurology, Dr. Wood. He recommended aspirin with statins. Lifestyle modification wa s emphasized. She appears stable for discharge to inpatient rehabilitation. DIAGNOSTIC TESTS: 1. Urine drug screen positive for cocaine and cannabinoid. 2. Fasting lipid profile showed triglycerides 75, cholesterol 132, LDL 53, HDL 64. 3. CT angiogram of the head and neck was negative for significant stenosis. 4. Initial CT scan of the brain was negative for acute findings. FINAL DIAGNOSES: 1. Acute cerebrovascular accident. 2. Polysubstance abuse. 3. Ongoing tobacco dependence. 4. Diabetes mellitus type 2. 5. Gastroesophageal reflux disease. 6. Hypertension. 7. Mild intermittent asthma. 8. Chronic low back pain. 9. Degenerative joint disease. 10. History of systemic lupus erythematosus. 11. Mild hyponatremia. Total time coordinating the discharge of this patient including extensive counseling for tobacco and drug cessation was 38 minutes.
--- NOTE | 2017-07-11 07:48 | PQF ---
PLEASE SEND THIS QUERY TO DISCHARGING PHYSICIAN. THANKS. ALE ORTIZSHARON [id number] [address] [place] [address] [id number] CLINICAL DOCUMENTATION CLARIFICATION FORM: POST DISCHARGE Addendum to original discharge summary date: ____ Late entry note date: __ DATE: 07/11/2017 ATTN: DR. ZULUAGA Please exercise your independent, professional judgment in responding to the clarification form. Clinical indicators are provided on the bottom of this form for your review Please check appropriate box(s): Please clarify cause - effect of CVA: Conflicting documentation was noted in the Medical Record, please clarify if patient is being treated/monitored for: [ ] (diagnosis #1) [ ] (diagnosis #2) [ ] Other diagnosis [ ] Unable to determine In addition, please specify: Present on Admission (POA): [ ] Yes [ ] No [ ] Unable to determine For continuity of documentation, please document condition throughout progress notes and discharge summary. Thank You. CLINICAL INDICATORS - SIGNS / SYMPTOMS/ LABS ER - SLURRED SPEECH, TIA, PATIENT USED COCAINE H&P - SLURRED SPEECH, FACIAL DROOP, COCAINE USE CVA 07/02 CONSULT - RIGHT BASAL GANGLIA STROKE, COCAINE ABUSE, " WENT TO A [facility] SMOKED COCAINE AND A JOINT" PN - CVA, POLYSUBSTANCE ABUSE DS - CVA URINE DRUG SCREEN POSITIVE FOR COCAINE AND CANNABINOID POLYSUBSTANCE ABUSE RISK FACTORS DRUG ABUSE DM HTN TREATMENT ASPIRIN WITH STATINS (This form is maintained as a part of the permanent medical record) 2014 [employer]. All Rights Reserved Sapna Michel CCS, [email or web address] [email or web address] [phone] [email or web address]
== END 2017-07-04 16:32 | DRG 65 ==
LOC: ERS 16:53 → 2SE 19:45 → OBSVTOIN 07-02 12:18
PROVIDERS: ADMIT Internal Medicine; ATTEND Internal Medicine
DX: I63.9 Cerebral infarction, unspecified (principal); E87.1 Hypo-osmolality and hyponatremia; E11.65 Type 2 diabetes mellitus with hyperglycemia; I10 Essential (primary) hypertension; G81.94 Hemiplegia, unspecified affecting left nondominant side; K21.9 Gastro-esophageal reflux disease without esophagitis; F17.210 Nicotine dependence, cigarettes, uncomplicated; J45.20 Mild intermittent asthma, uncomplicated; M19.90 Unspecified osteoarthritis, unspecified site; M54.5 Low back pain; F14.10 Cocaine abuse, uncomplicated; L93.0 Discoid lupus erythematosus
CPT/HCPCS: 0042T; 36415; 36416; 70450; 70496; 70498; 70551; 71010; 80048; 80053; 80061; 80306; 81003; 82553; 83735; 84443; 84484; 85025; 85610; 85730; 93005; 93306; 99406; G8978-GP-CL; G8979-GP-CJ; G8987-GO-CJ; G8988-GO-CI; G8996-GN-CJ; G8997-GN-CI; J1650; J1815

== ENCOUNTER 2023-08-07 09:32 | Emergency (ER) | payer OTHER | END 2023-08-07 10:00 | disposition home or self-care (01) | LOC: ERS 09:32 | DX: B34.9 Viral infection, unspecified (principal); E11.9 Type 2 diabetes mellitus without complications; I10 Essential (primary) hypertension; E78.00 Pure hypercholesterolemia, unspecified; Z79.4 Long term (current) use of insulin; Z79.899 Other long term (current) drug therapy | CPT/HCPCS: 99283 ==

== ENCOUNTER 2024-02-17 09:46 | Outpatient (CLI) | payer OTHER | END 2024-02-17 09:47 | disposition home or self-care (01) | LOC: BICRAD 09:46 | PROVIDERS: ATTEND Nurse Practitioner Family | DX: M25.512 Pain in left shoulder (principal) ==

== ENCOUNTER 2025-06-20 18:22 | Emergency (ER) | payer OTHER ==
[2025-06-20 19:29] LABS: #Basophils Less than 0.03 10x3/uL (0.0-0.2); #Eosinophils 0.03 10x3/uL (0.0-0.7); #Monocytes 0.50 10x3/uL (0.11-0.59); #Neutrophils 4.30 10x3/uL (1.40-6.50); %Basophils 0.1 % (0.0-1.0); %Eosinophils 0.4 % (0.0-10.0); %Lymphocytes 34.1 % (21.0-51.0); %Monocytes 6.8 % (0.0-10.0); %Neutrophils 58.3 % (42.0-75.0); Hematocrit 34.4 % (36.0-47.0); Hemoglobin 10.7 g/dL (12.0-16.0); Mean Corpuscular Hemoglobin 28.6 pg (27.0-31.0); Mean Corpuscular Volume 92.0 fL (78.0-98.0); Platelet Count 234 10x3/uL (130-400); Red Blood Cell (RBC) Count 3.74 mill/uL (4.20-5.40); White Blood Cell (WBC) Count 7.37 10x3/uL (4.8-10.8)
[2025-06-20 19:46] LABS: ALT (SGPT) Less than 7 U/L (Less than 34); AST (SGOT) 20 U/L (11-34); Albumin 3.8 g/dL (3.1-4.5); Anion Gap 13 mmol/L (10-20); BUN (Urea Nitrogen) 17 mg/dL (9.8-20.1); Bilirubin, Total 0.3 mg/dL (0.3-1.2); Calc. Creatinine Clearance 0 mL/min (70-130); Calcium 9.7 mg/dL (7.8-10.44); Carbon Dioxide 24 mmol/L (22-29); Chloride 105 mmol/L (98-107); Globulin 4.9 g/dL (2.4-3.5); Glucose 119 mg/dL (70-105); Lipase 49 U/L (8-78); Potassium 4.1 mmol/L (3.5-5.1); Sodium 138 mmol/L (136-145)
[2025-06-20 20:04] LABS: Alkaline Phosphatase 70 U/L (40-110)
[2025-06-20] MEDS ORDERED: Ketorolac Tromethamine 30 MG (1 mL) VIAL ONE (21:24)
== END 2025-06-20 22:55 | disposition home or self-care (01) ==
LOC: ERS 18:22
DX: M25.552 Pain in left hip (principal); M94.0 Chondrocostal junction syndrome [Tietze]; E11.9 Type 2 diabetes mellitus without complications; I10 Essential (primary) hypertension; F17.210 Nicotine dependence, cigarettes, uncomplicated; Z86.73 Personal history of transient ischemic attack (TIA), and cerebral infarction without residual deficits
CPT/HCPCS: 36415; 70450; 71045; 72125; 80053; 83690; 83880; 84484; 85025; 93005; 94760; 96372; J1885